=== PATIENT | male | born 1955 | race Caucasian/White ===

== ENCOUNTER → 2017-06-21 10:41 | Outpatient (REF) | payer MEDICARE, MEDICAID, SELFPAY ==
[2017-06-21 13:47] LABS: Basophils # 0.1 K/mm3 (0-0.2); Basophils % 0.9 % (0.1-2.0); Eosinophils # 0.2 K/mm3 (0.0-0.4); Eosinophils % 3.7 % (0.1-12.0); Hematocrit 54.4 % (42.0-52.0); Hemoglobin 17.6 g/dL (14.1-18.0); Lymphocytes # 1.4 K/mm3 (0.7-4.5); Lymphocytes % 21.8 K/mm3 (10-50); Mean Corpuscular HGB Conc 32.3 g/dL (31.8-35.4); Mean Corpuscular Hemoglobin 29.2 pg (27.0-31.2); Mean Corpuscular Volume 90.4 fl (80-94); Mean Platelet Volume 7.5 fl (7.4-10.4); Monocytes # 0.5 K/mm3 (0.1-1.0); Monocytes % 8.1 % (1.7-9.3); Neutrophils # 4.2 K/mm3 (1.8-7.8); Neutrophils % 65.4 % (37.0-80.0); Platelet Count 283 K/mm3 (142-424); Red Blood Count 6.02 M/mm3 (4.60-6.20); Red Cell Distribution Width 13.9 % (11.5-17.5); White Blood Count 6.4 K/mm3 (4.8-10.8)
[2017-06-21 14:04] LABS: Alanine Aminotransferase 33 U/L (12-78); Albumin Level 3.8 gm/dL (3.4-5.0); Alkaline Phosphatase 147 U/L (46-116); Anion Gap 16.4 mEq/L (5-15); Aspartate Amino Transferase 18 U/L (15-37); Bilirubin,Total 0.6 mg/dL (0.2-1.0); Blood Urea Nitrogen 16 mg/dL (7-18); Calcium 9.2 mg/dL (8.5-10.1); Carbon Dioxide 25 mmol/L (21.0-32.0); Chloride 99 mmol/L (98-107); Chol/HDL Ratio 3.3 (1-3.5); Cholesterol 146 mg/dL (140-200); Creatinine,Serum 0.91 mg/dL (0.70-1.30); Estimated Glomerular Filt Rate 85 ml/min (>60); GFR (African American) 103 ML/MIN (>60); Globulin 3.8 gm/dl (1.3-3.2); Glucose 81 mg/dL (74-106); HDL Cholesterol 44 mg/dL (27-67); LDL Cholesterol 83 mg/dL (0-130); Potassium 4.4 mmoL/L (3.5-5.1); Sodium 136 mmol/L (136-145); Total Protein,Serum 7.6 gm/dL (6.4-8.2); Triglycerides 94 mg/dL (30-200); VLDL Cholesterol 19 mg/dL (0-40)
== END ==
LOC: LAB.CARL 10:41
PROVIDERS: Visit Provider Physician Assistant
DX: R53.83 Other fatigue (principal); Z79.899 Other long term (current) drug therapy; I69.354 Hemiplegia and hemiparesis following cerebral infarction affecting left non-dominant side
CPT/HCPCS: 80053; 80061; 85025

== ENCOUNTER 2022-02-15 15:00 | Outpatient (RCR) | payer MEDICARE, MEDICAID, SELFPAY ==
--- NOTE | 2021-12-15 17:18 | HMH.PTOPEV ---
PT Outpatient Evaluation Rehab PT Outpatient Evaluation Start: 12/15/21 16:04 Freq: Status: Active Protocol: Document 12/15/21 16:04 MAXIMO (Rec: 12/15/21 17:18 [email or web address] [id number]) E-signed By Sukhjinder Ramos, PT Outpatient Therapy Subjective History Subjective History Pt.'s /caregiver was present at the time of the initial eval. this date(). Pt. is a 66 year old male who presents to [facility] Outpatient Physical Therapy Services in [place] for the initial evaluation this date( 12/15/21) w/ c's/o chronic and constant L-sided P!, weakness , numbness, and spasticity secondary to a CVA 8 years ago w/ current symptom complaint worsening in the last year. Pt . reports noticing a decline in transfers, standing, and ambulation within the last year. Pt. currently reports requiring assistance w/ transfers, states the only time he's been on his feet are for transferring to/from toilet. Pt. reports owning medical equipment that includes a lift chair, grab bars, W/C accessible shower, power W/C, chelsi-walker, and SPC. Pt. also reports having an AFO for the LLE ankle/ft., but dons it w/ prolonged ambulation at this time. Pt. also reports having an increase in P! w/ activity that limits function. Pt. RTMD in 3 months. PMH includes COPD, LUE shldr. subluxation, history of auditory/speech deficits, S/P percutaneous nephrolithotomy, and history of a CVA. Chief Complaint Pain,Stiff,Swelling,Gives out/ Unstable,Paresthesia,Weakness, Decreased Coordination Symptom Type Ache,Throb,Dull,Numbness, Shooting Symptom
== END 2022-03-01 09:31 | disposition home or self-care (01) ==
LOC: PT.CARL 15:00
PROVIDERS: PCP Family Medicine; Visit Provider Family Medicine
DX: I63.9 Cerebral infarction, unspecified (principal)
CPT/HCPCS: 97110; 97163; 97164; 97530

== ENCOUNTER 2024-02-28 09:17 | Outpatient (CLI) | payer MEDICARE, MEDICAID, SELFPAY ==
--- NOTE | 2024-02-28 09:19 | CA_ITS ---
FINAL REPORT TECHNIQUE: Color Doppler, duplex Doppler and compression sonography of the left lower extremity deep venous systems was performed. CLINICAL HISTORY: SWELLING,PAIN LLE,REDNESS,PT HAD A CVA 10 YEARS AGO WITH LEFT SIDE DEFICIT,HTN,PT ON ELIQUIS COMPARISON: None FINDINGS: There is no evidence of deep venous thrombosis in the left lower extremity from the level of the groin to the calf. The veins are patent and compressible. IMPRESSION: No evidence of deep venous thrombosis left lower extremity. Reviewed, Interpreted and Dictated by Wilber Mendoza III, MD Transcribed by Zaynab Enriquez Authenticated and [facility]
== END 2024-02-28 23:59 | disposition home or self-care (01) ==
LOC: RT 09:18
PROVIDERS: PCP Family Medicine; Visit Provider Family Medicine
DX: M79.89 Other specified soft tissue disorders (principal)
CPT/HCPCS: 93971

== ENCOUNTER 2024-07-02 11:12 | Emergency (ER) | payer MEDICARE, MEDICAID, SELFPAY ==
[2024-07-02 11:21] VITALS: BP 150/80; PULSE 78; RESP 18; TEMP 36.8; O2SAT 95; BMI 28.0
--- NOTE | 2024-07-02 11:32 | XR_ITS ---
FINAL REPORT CLINICAL HISTORY: COPD, worsening cough COMPARISON: None FINDINGS: There is lordotic positioning. The lungs are underinflated. The heart size is normal. The mediastinum is normal. There is mild airspace opacity in the right perihilar region, probably due to acute pneumonia. There are no pleural effusions. There is no pneumothorax. There is no osseous abnormality. IMPRESSION: Probable acute pneumonia right perihilar region. Follow-up PA and lateral chest recommended. Reviewed, Interpreted and Dictated by Arturo Buckley MD Transcribed by Joan Caballero Authenticated and [facility]
--- NOTE | 2024-07-02 11:32 | CA_ITS ---
FINAL REPORT TECHNIQUE: Ultrasound images of the deep venous system were obtained from the left groin to the calf veins. CLINICAL HISTORY: EDEMA LLE,PT HAS HAD PRIOR CVA WITH DEFICITS,PT ON XARELTO FINDINGS: The deep venous system is normally compressible. Normal flow is identified. IMPRESSION: No evidence of left lower extremity DVT. Reviewed, Interpreted and Dictated by Arturo Buckley MD Transcribed by Nichol Vernon Authenticated and [facility]
--- NOTE | 2024-07-02 11:34 | HMH.EDGENADL ---
Discharge Plan Disposition Patient Disposition: Home, Self-Care Condition: Good Prescriptions Prescriptions: New levofloxacin 750 mg tablet 750 mg PO DAILY 7 Days Qty: 7 0RF prednisone 20 mg tablet 40 mg PO DAILY 4 Days Qty: 8 0RF Rx Instructions: Start tomorrow 07/03/2024 No Action citalopram 40 mg tablet See Rx Instructions .ROUTE .COMPLEX Qty: 30 4RF Dose Instruction: TAKE 1 TABLET BY MOUTH EVERY DAY ORALLY ONCE A DAY 30 DAYS Rx Instructions: TAKE 1 TABLET BY MOUTH EVERY DAY ORALLY ONCE A DAY 30 DAYS gabapentin 800 mg tablet 800 mg PO TID Qty: 90 3RF albuterol sulfate 90 mcg/actuation HFA aerosol inhaler 1 inh inhalation QID 30 Days Qty: 8.5 2RF roflumilast 500 mcg tablet See Rx Instructions .ROUTE .COMPLEX Qty: 90 0RF Dose Instruction: TAKE 1 TABLET 1 TIME EACH DAY Rx Instructions: TAKE 1 TABLET 1 TIME EACH DAY amitriptyline 75 mg tablet See Rx Instructions .ROUTE .COMPLEX Qty: 90 0RF Dose Instruction: TAKE 1 TABLET 1 TIME EACH DAY Rx Instructions: TAKE 1 TABLET 1 TIME EACH DAY Xarelto 20 mg tablet See Rx Instructions .ROUTE .COMPLEX Qty: 90 0RF Dose Instruction: TAKE 1 TABLET 1 TIME EACH DAY Rx Instructions: TAKE 1 TABLET 1 TIME EACH DAY propranolol 10 mg tablet See Rx Instructions .ROUTE .COMPLEX Qty: 90 0RF Dose Instruction: TAKE 1 TABLET 1 TIME EACH DAY Rx Instructions: TAKE 1 TABLET 1 TIME EACH DAY baclofen 20 mg tablet See Rx Instructions .ROUTE .COMPLEX Qty: 270 0RF Dose Instruction: TAKE 1 TABLET 3 TIMES EACH DAY Rx Instructions: TAKE 1 TABLET 3 TIMES EACH DAY omeprazole 40 mg capsule,delayed release(DR/EC) See Rx Instructions .ROUTE .COMPLEX Qty: 60 0RF Dose Instruction: TAKE 1 CAPSULE 2 TIMES EACH DAY FOR REFLUX Rx Instructions: TAKE 1 CAPSULE 2 TIMES EACH DAY FOR REFLUX oxycodone-acetaminophen 10-325 mg tablet 1 tab PO DAILY Qty: 30 0RF Referrals Follow up/Referrals: Elias Washington MD [Primary Care Provider] - See instructions Activity Restrictions/Add. Instructions Additional Instructions/Restrictions: You were evaluated in the emergency department today. At this time, workup is concerning for pneumonia. Please cotton picker the prescriptions at the pharmacy and take the full course as prescribed. Be sure to drink plenty of fluids at home. Follow-up closely with primary care. Return to the emergency department for new or worsening symptoms. Clinical Impressions Clinical Impression: Pneumonia, Hallucinations Instructions Patient Instructions: Pneumonia--Adult, DI for Altered Mental Status Print Language Print Language: Ukrainian Discharge ED Provider: Amanda Johns General Adult HPI General Chief complaint: Altered Mental Status Stated complaint: Poss UTI-hallucinations, shaking Time Seen by Provider: 07/02/24 11:22 History of Present Illness HPI narrative: This patient is a 68-year-old male with a history of prior CVA with residual left-sided deficits, COPD, GERD, and depression presenting to the emergency department for evaluation concern for confusion and hallucinations. According to family, they think he may have a UTI based on symptoms and issues that he had with this in the past. They also note that he is coughing up a little bit more sputum than normal, but no recent fevers, complaints of sore throat or shortness of breath. They also note that he has had some worsening swelling and tenderness of his left leg. 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 It is always sensitive, but seems be more sensitive now with him being irritable with it touching the floor. Aside from the intermittent hallucinations and confusion, no new neurologic symptoms noted. Related Data Previous Rx's ?Medication ?Instructions ?Recorded citalopram 40 mg tablet See Rx Instructions .Route 12/26/23 .COMPLEX #30 tabs gabapentin 800 mg tablet 800 mg PO TID #90 tabs 12/26/23 albuterol sulfate 90 mcg/actuation 1 inh inhalation QID 30 days #8.5 05/16/24 aerosol inhaler grams amitriptyline 75 mg tablet See Rx Instructions .Route 06/08/24 .COMPLEX #90 tabs baclofen 20 mg tablet See Rx Instructions .Route 06/08/24 .COMPLEX #270 tabs omeprazole 40 mg capsule,delayed See Rx Instructions .Route 06/08/24 release .COMPLEX #60 caps oxycodone-acetaminophen 10 mg-325 1 tab PO DAILY #30 tabs 06/08/24 mg tablet propranolol 10 mg tablet See Rx Instructions .Route 06/08/24 .COMPLEX #90 tabs rivaroxaban 20 mg tablet (Xarelto) See Rx Instructions .Route 06/08/24 .COMPLEX #90 tabs roflumilast 500 mcg tablet See Rx Instructions .Route 06/08/24 .COMPLEX #90 tabs levofloxacin 750 mg tablet 750 mg PO DAILY 7 days #7 tabs 07/02/24 prednisone 20 mg tablet 40 mg (2 x 20 mg) PO DAILY 4 days 07/02/24 #8 tabs Allergies Allergy/AdvReac Type Severity Reaction Status Date / Time Penicillins Allergy Hives Verified 07/02/24 14:11 [facility] Disclaimer: The information contained in this section may have been updated after the patient was seen, as this information can be updated by other users. Medical History Depression GERD (gastroesophageal reflux disease) CVA (cerebral vascular accident) Surgical History Kidney stones Family History Mother Coronary artery disease Heart attack Social History Smoking Status: Never smoker alcohol intake: current alcohol intake frequency: holidays/special occasions only substance use type: marijuana current occupational status: disabled Travel in the last 8 weeks: None household members: spouse housing: house Have you lived/traveled outside [place] in past 30 days?: No Contact w/someone who lives/traveled outside US past 30 days?: No Exposure to someone with infectious disease in past 14 days?: No Do you have a fever (greater than 100.4 F or 38 C)?: No Have you tested positive for COVID-19: No Exposed to someone with COVID-19 in past 14 days?: No Do you have a sore throat?: No Do you have a cough?: No Do you have any weakness?: No Do you have any diarrhea?: No Are you experiencing any unusual bleeding?: No Do you have any muscle aches/pain?: No Do you have any abdominal pain?: No Are you experiencing loss of taste or smell?: No Other Medical History Have you received the Pneumonia Vaccine: Yes ROS Obtained: Yes All systems reviewed & no additional complaints except as documented Physical Exam General General appearance: alert and in no apparent distress Head Head exam: atraumatic and normocephalic Eye Eye exam: Present normal appearance, PERRL and EOMI ENT ENT exam: Present normal exam, normal oropharynx, mucous membranes moist and normal external ear exam Neck Neck exam: Present normal inspection, full ROM and trachea midline; Absent tenderness Chest Chest inspection: Present normal inspection and symmetric chest wall rise; Absent tenderness Respiratory Respiratory exam: Present other (Bibasilar rhonchi); Absent respiratory distress, wheezes, stridor or accessory muscle use Cardiovascular Cardiovascular exam: Present regular rate and normal rhythm Abdominal Exam Abdominal exam: Present soft; Absent distention, tenderness or guarding Extremities Exam Extremities exam: Present tenderness (Tenderness to palpation of the left lower leg), normal capillary refill and edema (Dependent edema to the left lower extremity with some chronic skin changes, no significant erythema, warmth, or streaking) Back Exam Back exam: Present normal inspection and full ROM; Absent tenderness Neurological Exam Neurological exam: Present alert, oriented X3, CN II-XII intact and other (At his neurologic baseline with residual left-sided deficits from stroke) Psychiatric Psychiatric exam: Present normal affect and normal mood Skin Skin exam: Present warm and dry Medical Decision Making Medical Records Medical records reviewed: Yes I reviewed the patient's medical records. Screening: Per USPSTF and CDC recommendations, given the prevalence of disease in our region, it is our hospital?s policy to screen for HIV and viral Hepatitis for all patients aged 18 and over and those with ongoing risk factors. Travis Inquiry Pt receiving controlled substance: No Vital Signs: 07/02/24 11:21 07/02/24 12:48 07/02/24 13:00 Temperature 98.2 F Temperature Source Oral Pulse Rate 70 69 Pulse Rate [Radial] 78 Respiratory Rate 18 Blood Pressure 129/76 130/79 Blood Pressure [Right Arm] 150/80 H Blood Pressure Mean [Right Arm] 103 Blood Pressure Source [Right Arm] Automatic Cuff Blood Pressure Position [Right Arm] Sitting 02 Sat by Pulse Oximetry 95 95 98 Oxygen Delivery Method Room Air 07/02/24 14:19 Temperature 97.9 F Temperature Source Pulse Rate 61 Pulse Rate [Radial] Respiratory Rate 13 Blood Pressure 153/85 H Blood Pressure [Right Arm] Blood Pressure Mean [Right Arm] Blood Pressure Source [Right Arm] Blood Pressure Position [Right Arm] 02 Sat by Pulse Oximetry Oxygen Delivery Method Lab Data Lab results reviewed: Yes I reviewed the patient's lab results. Lab Results 07/02/24 11:32: VBG pH 7.47 H, VBG pCO2 32.4 L, VBG pO2 111.0 H, VBG HCO3 23.2, VBG Total CO2 24.2, VBG O2 Saturation 98.2 H, VBG Base Excess -0.5, VBG Lactic Acid 2.8 H 07/02/24 11:45: WBC 6.7, RBC 5.33, Hgb 14.4, Hct 45.0, MCV 84.4, MCH 27.0, MCHC 32.0, RDW 15.9, Plt Count 319, MPV 8.9, Neut % (Auto) 63.4, Lymph % (Auto) 22.6, [place] % (Auto) 7.3, Eos % (Auto) 5.4, Baso % (Auto) 1.2, Neut # (Auto) 4.3, Lymph # (Auto) 1.5, [place] # (Auto) 0.5, Eos # (Auto) 0.4, Baso # (Auto) 0.1, ESR 8, SARS-CoV-2 (PCR) Not detected, HCV Ab ANDREA w/Rflx PCR Qn Negative, HIV Ag/Ab Combo Qual Negative, Influenza A Untype (PCR) Not detected, Influenza Type B (PCR) Not detected 07/02/24 13:20: Sodium 141, Potassium 4.4, Chloride 106, Carbon Dioxide 28, Anion Gap 11.4, BUN 13, Creatinine 1.30 H, Estimated Creat Clear 68, Estimated GFR 55 L, Est GFR ( Amer) 67, Glucose 84, Calcium 8.6, Total Bilirubin 0.3, AST 27, ALT 24, Alkaline Phosphatase 88, C-Reactive Protein 9.5 H, NT-Pro-B Natriuret Pep 103, Total Protein 7.1, Albumin 3.9, Globulin 3.2, Albumin/Globulin Ratio 1.2, TSH 1.26, Thyroxine (T4) 7.8 07/02/24 13:30: Urine Color Yellow, Urine Appearance Clear, Urine pH 7.0, Ur Specific [place] 1.015, Urine Protein Negative, Urine Glucose (UA) Negative, Urine Ketones Negative, Urine Blood Trace-i, Urine Nitrate Negative, Urine Bilirubin Negative, Urine Urobilinogen 0.2, Ur Leukocyte Esterase Negative, Urine RBC 5-10, Urine WBC 3-5, Ur Squamous Epith Cells None, Urine Bacteria None 07/02/24 11:45 07/02/24 13:20 Orders (Tests/Meds): ED MEDICATIONS Discontinued Medications Generic Name Dose Route Start Last Admin Trade Name Raheem PRN Reason Stop Dose Admin Levofloxacin 750 mg 07/02/24 13:41 07/02/24 13:47 Levofloxacin 750 Mg Tablet PO 07/02/24 13:42 750 mg ONCE ONE Administration Prednisone 40 mg 07/02/24 13:41 07/02/24 13:47 Prednisone 20mg Tab PO 07/02/24 13:42 40 mg ONCE ONE Administration ORDERS Category Date Time Status CXR --portable [XR chest portable] Stat Exams 07/02/24 11:32 Completed BNP [NT Pro Brain Natriuretic Pep.] Stat Lab 07/02/24 13:20 Completed CRP [C-Reactive Protein] Stat Lab 07/02/24 13:20 Completed Complete Blood Count Auto Diff Stat Lab 07/02/24 11:45 Completed Comprehensive Metabolic Panel Stat Lab 07/02/24 13:20 Completed ESR [Erythrocyte Sedimentation Rate] Stat Lab 07/02/24 11:45 Completed HIV Combo Stat Lab 07/02/24 11:45 Completed Hepatitis C Ab Qual. W/ RFX Stat Lab 07/02/24 11:45 Completed Rapid PCR Covid and Flu A/B Stat Lab 07/02/24 11:45 Completed T4 (Thyroxine) Stat Lab 07/02/24 13:20 Completed TSH [Thyroid Stimulating Hormone] Stat Lab 07/02/24 13:20 Completed UA [Urinalysis and Microscopic] Stat Lab 07/02/24 13:30 Completed Urine Culture Stat Micro 07/02/24 11:33 Received VBG [Venous Blood Gas] Stat RT 07/02/24 11:32 Completed CA venous doppler LE LT Stat Y 07/02/24 11:32 Completed ECG Data Tracing #1: I reviewed this ECG and interpreted as documented below: Normal sinus rhythm with a ventricular rate of 70 bpm. Indeterminate axis. Right bundle branch block. No acute ST changes concerning for STEMI ECG initial impression date: 07/02/24 ECG initial impression time: 12:16 Medical Decision Narrative: In summary, this patient is a 68-year-old male presenting to the Emergency Department for evaluation of possible UTI with confusion, hallucinations. He also has had increased sputum production, left leg pain and swelling, but these were not family's primary concerns. Differential diagnoses considered include but are not limited to urinary tract infection, metabolic encephalopathy, DVT, cellulitis, pneumonia, COPD exacerbation, viral syndrome. Ruling out the most morbid conditions drove assessment. It should be noted patient's history includes prior CVA with residual left-sided deficits, GERD, COPD which may or may not be at goal therapy. This complicates all aspects of care by increasing patient's risk for morbidity. I reviewed patient's past medical records and noted prior PCP evaluations for maintenance of health as well as for chronic pain of the left lower extremity. On exam, the patient is sitting upright in no acute distress. He is alert, oriented, at his neurologic baseline. He has chronic left leg swelling with tenderness this slightly worse than normal. He has bilateral rhonchi noted but no increased work of breathing. Vitals are reassuring on cardiac telemetry. Abdominal exam is benign. Workup included CBC, CMP, TSH, T4, ESR, CRP, urinalysis, urine culture, chest x-ray, viral swab, DVT ultrasound of the left lower extremity, and EKG. I independently interpreted x-ray and ultrasound prior to the radiologist read and noted right sided pneumonia, no DVT. Please see their read for final interpretation. Labs were obtained that demonstrated CBC with no significant leukocytosis, VBG demonstrates mild respiratory alkalosis and mildly elevated lactic acid. Creatinine is mildly elevated at 1.3 without prior recent for comparison. CRP is mildly elevated.. Urinalysis is not concerning for infection. On reassessment, patient is resting comfortably no acute distress with no increased work of breathing reassuring vital signs on cardiac telemetry. I feel that he is appropriate for discharge home with prescriptions for antibiotics and steroids to treat community-acquired pneumonia/COPD exacerbation. He was given prescriptions for Levaquin and prednisone. Strict return precautions were given as well as instructions for close follow-up with primary care. Critical Care Critical Care Time Critical Care Time: No
--- OUTSIDE RECORDS SUMMARY | 2024-07-02 11:52 | XMS_ITS | Data Portability ---
Author Organization [place] [facility] Address [address] [place] [address] Assessment Encounter Date Assessment Date Assessment LastModified by Organization Details LastModified Time 11/17/2017 11/17/2017 Stent has been removed. We discussed kidney stone prevention. [email or web address] Not available 11/27/2017 22:13:44 Plan of Treatment Reminders Order Date Submit Date Provider Last Modified By Organization Details Last Modified Time Details Appointments None recorde d. Lab urinaly sis, dipstic k, auto 018 11/18/19 18 [facility] With [facility], [address] [place] [address] Dr [address], [place], [address], 8 12:06:37 culture , urine 018 11/18/19 18 [facility], [address] [place] [address], [address], 8 15:54:00 Referral None recorde d. Procedures None recorde d. Surgeries None recorde d. Imaging None recorde d. Medication Orders None recorde d. Patient TargetsNo targets recorded. Patient Instructions Encounter Date Encounter Id Patient Instructions Last Modified By Organization Details Last Modified Time 11/17/2017 [id number] healthy together [email or web address] Not availa ble 11/18/2017 12:06:37 learning about high blood pressure [email or web address] Not available 11/18/2017 12:06:37 Urinary Tract Infections (UTI) in Men: Care Instructions [email or web address] Not available 11/18/2017 12:06:37 kidney stone: care instructions [email or web address] Not available 11/27/2017 22:13:44 learning about diet for kidney stone prevention [email or web address] Not available 11/27/2017 22:13:45 Reason for Referral None Reported. Results Created Date Observation Date Name Description Value Unit Range Abnormal Flag Note LastModifiedBy Organization Detail LastModifiedTime 11/18/19 18 11/17/2017 urina lysis , dipst ick, auto Unknown Analyte Yellow Not Available [facility] Extended Services With [address], [place], [address], 11/17/2017 16:01:12 11/18/19 18 11/17/2017 urina lysis , dipst ick, auto Unknown Analyte Clear Not Available [facility] Extended Services With [address] [place], [address], 11/17/2017 16:01:12 11/18/19 18 11/17/2017 urina lysis , dipst ick, auto Unknown Analyte 1.010 Not Available [facility] Extended Services With [address] [place], [place], [address], 11/17/2017 16:01:12 11/18/19 18 11/17/2017 urina lysis , dipst ick, auto Unknown Analyte 1.003 - 1.035 Not Available [facility] Extended Services With [address] [place], [address], 11/17/2017 16:01:12 11/18/19 18 11/17/2017 urina lysis , dipst ick, auto Unknown Analyte 6.5 Not Available [facility] Extended Services With [address] [place], [address], 11/17/2017 16:01:12 11/18/19 18 11/17/2017 urina lysis , dipst ick, auto Unknown Analyte 5.0 - 8.0 Not Available [facility] Extended Services With [address] [place], [place], [address], 11/17/2017 16:01:12 11/18/19 18 11/17/2017 urina lysis , dipst ick, auto Unknown Analyte 75 Sheri/ul (+) Not Available [facility] Extended Services With [address] [place], [address], 11/17/2017 16:01:12 11/18/19 18 11/17/2017 urina lysis , dipst ick, auto Unknown Analyte Negati ve Not Available [facility] Extended Services With [address] [place], [address], 11/17/2017 16:01:12 11/18/19 18 11/17/2017 urina lysis , dipst ick, auto Unknown Analyte Negati ve Not Available [facility] Extended Services With [address] [place], [address], 11/17/2017 16:01:12 11/18/19 18 11/17/2017 urina lysis , dipst ick, auto Unknown Analyte Negati ve Not Available [facility] Extended Services With [address] [place], [address], 11/17/2017 16:01:12 11/18/19 18 11/17/2017 urina lysis , dipst ick, auto Unknown Analyte Trace Not Available [facility] Extended Services With [address] [place], [address], 11/17/2017 16:01:12 11/18/19 18 11/17/2017 urina lysis , dipst ick, auto Unknown Analyte Negati ve - Trace Not Available [facility] Extended Services With [address] [place], [address], 11/17/2017 16:01:12 11/18/19 18 11/17/2017 urina lysis , dipst ick, auto Unknown Analyte Normal Not Available [facility] Extended Services With [address] [place], [place], [address], 11/17/2017 16:01:12 11/18/19 18 11/17/2017 urina lysis , dipst ick, auto Unknown Analyte Normal Not Available [facility] Extended Services With [address] [place], [address], 11/17/2017 16:01:12 11/18/19 18 11/17/2017 urina lysis , dipst ick, auto Unknown Analyte Negati ve Not Available [facility] Extended Services With [address] [place], [address], 11/17/2017 16:01:12 11/18/19 18 11/17/2017 urina lysis , dipst ick, auto Unknown Analyte Negati ve Not Available [facility] Extended Services With [address] [place], [address], 11/17/2017 16:01:12 11/18/19 18 11/17/2017 urina lysis , dipst ick, auto Unknown Analyte Normal Not Available [facility] Extended Services With [address] [place], [address], 11/17/2017 16:01:12 11/18/19 18 11/17/2017 urina lysis , dipst ick, auto Unknown Analyte Normal - 1mg/dl Not Available [facility] Extended Services With [address] [place], [address], 11/17/2017 16:01:12 11/18/19 18 11/17/2017 urina lysis , dipst ick, auto Unknown Analyte Negati ve Not Available [facility] Extended Services With [address] [place], [address], 11/17/2017 16:01:12 11/18/19 18 11/17/2017 urina lysis , dipst ick, auto Unknown Analyte Negati ve Not Available [facility] Extended Services With [address] [place], [address], 11/17/2017 16:01:12 11/18/19 18 11/17/2017 urina lysis , dipst ick, auto Unknown Analyte 250 Gal/ul Not Available [facility] Extended Services With [address] [place], [address], 11/17/2017 16:01:12 11/18/19 18 11/17/2017 urina lysis , dipst ick, auto Unknown Analyte Negati ve Not Available [facility] Extended Services With [address] [place], [address], 11/17/2017 16:01:12 11/18/19 18 11/17/2017 urina lysis , dipst ick, auto Unknown Analyte Clean Catch Not Available [facility] Extended Services With [address] [place], [address], 11/17/2017 16:01:12 11/18/19 18 11/17/2017 urina lysis , dipst ick, auto Unknown Analyte Automa mary ann Not Available [facility] Extended Services With [address] [place], [address], 11/17/2017 16:01:12 11/18/19 18 11/17/2017 cultu re, urine results Sourc e: CCJAIRON Colle cted: 11/17 16:03 Site: Recei kranthi : 11/17 20:32 URINE SCREE N(CUL TURE) FINAL 11/22 11:45 11/22 COLON Y COUNT : < 20,00 0 CFU/M L Three or more isola kaiden; mixed skin lloyd . Not Available [facility] [address] [place], [address], 11/22/2017 11:45:33 11/10/19 18 11/06/2017 CT, abdom en + pelvi s, w/o contr ast No observ ation record ed. [address] (Radiology) [address] [place], [address], 11/09/2017 15:49:19 Result Notes None recorded. Problems Name Problem SNOMED Code Status Onset Date Resolution Date Notes Provider Name and Address Organization Details Recorded Time Renal pain 346889329 Active 018 Gretchen Baer [facility] 11/17/2017 15:58:34 Problem Notes None recorded. Procedures Surgical History Date Name Laterality Status Provider Name and Address Organization Details Recorded Time 11/10/2017 Kidney Stones completed [facility] 11/17/2017 15:59:12 Imaging Results Imaging Date Name Status LastModified by Organiz ation Details LastModified Time 11/06/2017 CT, abdomen + pelvis, w/o contrast completed [address] (Radiology) [address] [place] [address] [place], [address], 11/09/2017 15:49:19 Procedure Notes None recorded. Medical Equipment None Reported. Allergies Allergen ID Allergen Name Allergen Category Reaction Reaction Severity Criticality Documentation Date Start Date Code Code System Note Provider Name and Address Organization Details Recorded Time 724205 Product containin g penicilli n (product) medicatio n Not available Not available Not available 11/17/2017 51572 8001 SNOMED Taylorherminioyajaira Keyur [facility] 8 15:51:56 Medications Name Sig Start Date Stop Date Status Note LastModified by Organization Details LastModified Time propranolol 10 mg tablet Take 2 tablets 3 times a day by oral route. active Not Available Not Available No t Available DuoNeb 0.5 mg-3 mg(2.5 mg base)/3 mL solution for nebulization Inhale 3 mL 4 times a day by nebulizatio n route. active Not Available Not Available No t Available Celexa 20 mg tablet Take 1 tablet every day by oral route. active Not Available Not Available No t Available pantoprazole 40 mg tablet,delay ed release Take 1 tablet every day by oral route. active Not Available Not Available No t Available Elavil 75 mg tablet Take 1 tablet every day by oral route. active Not Available Not Available No t Available Mucinex 600 mg tablet, extended release Take 1 tablet every 12 hours by oral route. active Not Available Not Available Not Available triamcinolon e acetonide active Not Available Not Available Not Available atorvastatin active Not Available Not Available Not Available oxycodone active Not Available Not Beata ilable Not Available nystatin active Not Available Not Avai lable Not Available Pepto-Bismol active Not Available Not Available Not Available baclofen active Not Available Not Avai lable Not Available Aspir-81 active Not Available Not Avai lable Not Available albuterol sulfate active Not Available Not Available Not Available promethazine active Not Available Not Available Not Available gabapentin active Not Available Not Av ailable Not Available Protonix active Not Available Not Avai lable Not Available Symbicort active Not Available Not Beata ilable Not Available Probiotic active Not Available Not Beata ilable Not Available Daliresp active Not Available Not Avai lable Not Available Xarelto 20 mg tablet Take 1 tablet every day by oral route. active Not Available Not Available No t Available terbinafine active Not Available Not A vailable Not Available Flonase Allergy Relief active Not Available Not Available Not Available Melatin 3 mg tablet Take by oral route. active Not Available Not Available Not Available Spiriva Respimat 1.25 mcg/actuatio n solution for inhalation Inhale 2 puffs every day by inhalation route. active Not Available Not Available No t Available econazole nitrate (bulk) active Not Available Not Available Not Available Vitals Date Recorded Body height Body mass index (BMI) Body weight Systolic blood pressure Diastolic blood pressure Provider Name and Address Organization Details Last Updated DateTime 11/17/2017 177.8 cm 30.7 kg/m2 32190.77 g 118 mm[Hg] 60 mm[Hg] Gretchen Baer [facility] 8 15:51:18 Social History Question Answer Notes LastModified by Organizat ion Details LastModified Time Tobacco Smoking Status Former Smoker Taylorilsa Keyur [facility] 11/17/2017 15:58:50 What Is Your Level Of Alcohol Consumption? None Information not available 11/17/2017 Marital Status Informatio n not available 11/17/2017 What Was The Date Of Your Most Recent Tobacco Screening? 11/17/2017 Information n ot available 05/08/2019 Sex: Unknown Functional Status None recorded. Mental Status None recorded. Family History Relationship Description Onset Age of this Age Resolved Age Notes LastModified by Organization Details LastModified Time Father No current problems or disability Not available 11/17 15:58:42 Mother No current problems or disability Not available 11/17 15:58:43 Medical History Condition Response Kidney Stones Y Past Encounters Encounter ID Performer Location Encounter Start Date Encounter Closed Date Diagnosis/Indication Diagnosis SNOMED-CT Code Diagnosis ICD10 Code Diagnosis Note [id number] [place] [address] 06/21/2016 19:03:09 06/21/2016 19:03:09 [id number] WILLIAM KITCHEN MD [facility] EXTENDED SERVICES [address] [place] [address],[place] [address] 11/17/2017 14:39:16 11/28/2017 08:26:07 Urinary tract infectious disease 50162566 N39.0 Kidney stone 66058103 N2 0.0 Health Concerns Section Related Observation LastModified by Organization Detai ls LastModified Time None Recorded Concern Status LastModified by Organization Details LastModified Time None Recorded Advance Directives Directive None Recorded Payers Encounter Date Sequence Insurance Name Policy Number Policy [place] Covered Member ID [place] Member ID Guarantor Name 11/17/2017 1 [employer] (MEDICARE REPLACEMENT/ ADVANTAGE - PPO) Valentín Jimenez [id number] Valentín Jimenez 11/17/2017 2 MEDICAID-[facility] CHOICES - FFS/TRADITIO NAL Valentín Jimenez [id number] Valentín Jimenez Notes Date Note Type Note Provider Name and Address Organization Details Recorded Time 11/17/2017 text/html 62-year-old male in the office for initial office evaluation of urolithiasis. He was admitted to [facility] with right renal colic secondary to ureteral stone. He underwent ureteroscopic stone extraction and stent placement. He is feeling much better now. No current flank pain, hematuria. WILLIAM KITCHEN MD [address] [place] [address], [address], [facility] 11/27/2017 22:14:24
[2024-07-02 11:53] LABS: Coronavirus 19, PCR Not Detected (NotDetected); Influenza A, PCR Not Detected (NotDetected); Influenza B, PCR Not Detected (NotDetected)
[2024-07-02 11:56] LABS: VBG Base Excess -0.5 mmol/L (-2.4-2.3); VBG HCO3 23.2 mmol/L (23-30); VBG Oxygen Saturation 98.2 % (50-70); VBG PCO2 32.4 mmol/L (35-51); VBG PH 7.47 mmol/L (7.31-7.41); VBG Total CO2 24.2 mmol/L (23-27)
[2024-07-02 11:58] LABS: Lactate Venous 2.8 mmol/L (0.4-2.0)
[2024-07-02 12:03] LABS: Basophils # 0.1 K/mm3 (0-0.2); Basophils % 1.2 % (0.1-2.0); Eosinophils # 0.4 K/mm3 (0.0-0.4); Eosinophils % 5.4 % (0.1-12.0); Hemoglobin 14.4 g/dL (14.1-18.0); Lymphocytes # 1.5 K/mm3 (0.7-4.5); Lymphocytes % 22.6 % (10-50); Mean Corpuscular Volume 84.4 fl (80-94); Mean Platelet Volume 8.9 fl (7.4-10.4); Monocytes # 0.5 K/mm3 (0.1-1.0); Monocytes % 7.3 % (1.7-9.3); Neutrophils # 4.3 K/mm3 (1.8-7.8); Neutrophils % 63.4 % (37.0-80.0); Nucleated Red Blood Cells # 0 10^3/uL; Nucleated Red Blood Cells % 0 %; Platelet Count 319 K/mm3 (142-424); Red Blood Count 5.33 M/mm3 (4.60-6.20); Red Cell Distribution Width 15.9 % (11.5-17.5); Red Cell Distribution Width-SD 48.8 fL; White Blood Count 6.7 K/mm3 (4.8-10.8)
--- NOTE | 2024-07-02 12:04 | PC.NURSE ---
doppler at bedside
--- NOTE | 2024-07-02 12:08 | PC.NURSE ---
XR AT BEDSIDE
--- NOTE | 2024-07-02 12:14 | ECG_ITS ---
APPROVED REPORT Exam: Resting ECG HR:70 bpm ECG Measurements Heart Rate 70 AXES CO 158 P 62 QRSd 121 QRS 37 QT 408 T 45 QTc 428 Conclusion SINUS RHYTHM INDETERMINATE AXIS RIGHT BUNDLE BRANCH BLOCK [120+ ms QRS DURATION, UPRIGHT V1, 40+ ms S IN I/aVL/V4/V5/V6] No STEMI Electronically signed by : YA MARCANO, 07/03/2024 00:22:24
[2024-07-02 12:48] VITALS: BP 129/76; PULSE 70; O2SAT 95
[2024-07-02 12:49] LABS: Erythrocyte Sedimentation Rate 8 mm/hr (0-20)
[2024-07-02 13:00] VITALS: BP 130/79; PULSE 69; O2SAT 98
[2024-07-02 13:00] LABS: HIV Combo NEGATIVE (Negative)
[2024-07-02 13:09] LABS: Hepatitis C Ab Qual. W/ RFX NEGATIVE (Negative)
[2024-07-02 13:36] LABS: Albumin Level 3.9 g/dl (3.5-5.0); Chloride 106 mmol/L (98-107); Potassium 4.4 mmoL/L (3.5-5.1); Sodium 141 mmol/L (136-145)
[2024-07-02 13:37] LABS: Microscopic, Urine URINE MICROSCOPIC (MICROSCOPIC)
[2024-07-02 13:39] LABS: Alanine Aminotransferase 24 U/L (12-78); Albumin/Globulin Ratio 1.2 (1.1-1.8); Alkaline Phosphatase 88 U/L (38-126); Anion Gap 11.4 mEq/L (5-15); Aspartate Amino Transferase 27 U/L (17-59); Bilirubin,Total 0.3 mg/dl (0.2-1.3); Blood Urea Nitrogen 13 mg/dl (9-20); Calcium 8.6 mg/dl (8.4-10.2); Carbon Dioxide 28 mmol/L (22.0-30.0); Creatinine Clearance Estimated 68 mL/min (50-200); Estimated Glomerular Filt Rate 55 ml/min (>60); GFR (African American) 67 ML/MIN (>60); Globulin 3.2 g/dL (1.3-3.2); Glucose 84 mg/dl (74-100); Total Protein,Serum 7.1 g/dl (6.3-8.2)
[2024-07-02 13:44] LABS: C-Reactive Protein 9.5 mg/L (0-4)
[2024-07-02] MEDS: predniSONE 20MG TAB 40 MG PO (13:47)
[2024-07-02] MEDS: levoFLOXacin 750 MG TABLET PO (13:47)
[2024-07-02 13:57] LABS: Appearance,Urine CLEAR (Clear); Bilirubin,Urine Negative (Negative); Blood, Urine TRACE-I (Negative); Color,Urine YELLOW (Yellow); Glucose,Urine (UA) Negative (Negative); Ketones,Urine Negative (Negative); Leukocyte Esterase,Urine Negative (Negative); Nitrate,Urine Negative (Negative); Protein,Urine Negative (Negative); Specific Gravity, Urine 1.015 (1.005-1.030); Urobilinogen,Urine 0.2 EU/dl (0.2)
[2024-07-02 13:58] LABS: T4 (Thyroxine) 7.8 ug/dl (5.53-11.0)
[2024-07-02 14:12] LABS: Thyroid Stimulating Hormone 1.26 uIU/mL (0.465-4.68)
[2024-07-02 14:19] VITALS: BP 153/85; PULSE 61; RESP 13; TEMP 36.6; O2SAT 95
[2024-07-02 14:32] LABS: NT Pro Brain Natriuretic Pep. 103 pg/mL (0-125)
[2024-07-02 15:59] LABS: Reflex Lactic Add Lactic Reflex
== END 2024-07-02 14:20 | disposition home or self-care (01) ==
PROVIDERS: Emergency Provider Emergency Medicine; PCP Family Medicine
DX: J44.0 Chronic obstructive pulmonary disease with (acute) lower respiratory infection (principal); J18.9 Pneumonia, unspecified organism; R44.3 Hallucinations, unspecified; R41.82 Altered mental status, unspecified
CPT/HCPCS: 99285; 36415; 71045; 80053; 81001; 82803; 83880; 84436; 84443; 85025; 85651; 86140; 86803; 87086; 87389; 87636; 93005; 93971

== ENCOUNTER 2024-07-24 14:37 | Outpatient (CLI) | payer MEDICARE, MEDICAID, SELFPAY ==
--- NOTE | 2024-07-24 14:41 | XR_ITS ---
FINAL REPORT CLINICAL HISTORY: pneumonia f/u COMPARISON: 07/02/2024 FINDINGS: PA and lateral views of the chest were obtained. The cardiac and mediastinal silhouettes are stable. Low lung volumes are present. There has been interval improvement in the right perihilar opacity since the prior chest x-ray. There is no significant pleural effusion or pneumothorax. No acute osseous abnormality is identified. IMPRESSION: Interval improvement in the right perihilar opacity since the prior chest x-ray of 07/02/2024. Reviewed, Interpreted and Dictated by Amisha Ramsey MD Transcribed by Zaynab Enriquez Authenticated and . [facility]
== END 2024-07-24 23:59 | disposition home or self-care (01) ==
LOC: RAD 14:38
PROVIDERS: PCP Family Medicine; Visit Provider Family Medicine
DX: J18.9 Pneumonia, unspecified organism (principal)
CPT/HCPCS: 71046

== ENCOUNTER 2024-08-15 15:00 | Outpatient (RCR) | payer MEDICARE, MEDICAID, SELFPAY ==
--- NOTE | 2024-08-08 16:54 | HMH.PTOPEV ---
PT Outpatient Evaluation Rehab PT Outpatient Evaluation Start: 08/08/24 15:06 Freq: Status: Active Protocol: Document 08/08/24 15:06 PDESEROUX (Rec: 08/08/24 16:54 PDESEROUX [id number]) E-signed By Sukhjinder Ramos, PT Outpatient Therapy Subjective History Subjective History Pt. is a 69 year old male who presents to [facility] Services in [place] for the outpatient initial evaluation this date( 08/08/24) w/ c/o subacute on chronic and constant LLE foot P!, edema, and weakness of traumatic onset in February of last year(2023). Pt. reports falling on his foot while transferring that resulted in P!, edema, and increased hypersensitivity to dorsal aspect of LLE foot. Pt. reports having trouble going to sleep, but also waking up in the night secondary to c/o LLE foot P!. Pt. 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 Pt. reports residual effects has progressively been getting worse since his fall. Pt. reports intermittent ambulating w/ LLE AFO, however , he doesn't wear it at home. Pt. c/o rubbing of his shoe to the dorsal aspect of his foot, expresses concern of abrasion to region of foot. Pt . reports since the P! has been worsening it has been more difficulty for him to transfer to<>from commode and recliner, but also more difficult to ambulate w/ his cane. Pt. RTMD in 3 months. Current medications include Propranolol, Baclofen, Celexa, Percocet, Neurontin, Xarelto. PMH includes CVA, nephrolith, COPD, pneumonia, foot drop of the LLE foot, spasticity of LLE. New diagnosis of cancer in past 12 No months? Chief Complaint Pain,Spasms,Swelling,Catches/ Locks,Gives out/Unstable, Paresthesia,Weakness Symptom Type Sharp,Stabbing,Burning, Numbness,Shooting Symptoms Relieved By Rest/Positioning,Ice,Brace/ Support,OTC Meds,Prescription Meds Symptoms Aggravated By Standing,Bending/Stooping, Physical Activity,Twisting, Walking Prior Functional Limitations None Current Functional Limitations Housework,Dressing,Sleeping, Standing,Recreation Activity, Walking,Stairs,Balance Symptom Description Constant but Variable,Activity Dependent Level of pain today (0-10) 3 Pain scale - at its best (0-10) 2 Pain scale - at its worst (0-10) 6 Hip/Knee Eval Gait Observation General Gait Pattern Observation Antalgic Gait,Shuffling Step, Decrease Weight Bear (L), Decrease Stride Lngth (R) Assistive Device Assistive Devices Straight Cane Palpation Tenderness left Knee Palpation Finding Tenderness Knee Palpation Overall Comment grade 4 +TTP MMT Hip Flexion Strength Grade 2 Poor Hip Abduction Strength Grade 2 Poor Hip Adduction Strength Grade 2 Poor Hip Extension Strength Grade 2+ Poor+ Gluteus Anil Strength Grade 2+ Poor+ Hip External Rotation Strength Grade 2 Poor Hip Internal Rotation Strength Grade 2 Poor Knee Extension Strength Grade 2+ Poor+ Knee Flexion Strength Grade 2+ Poor+ Knee Extensors Muscle Tone Description Rigidity Knee Flexors Muscle Tone Description Rigidity Hip Extensors Muscle Tone Description Rigidity Hip Flexors Muscle Tone Description Rigidity Sensation LE Dermatome Level L2,L3,L4,L5,S1 Comment pt. vocalized decreased light touch sensation of LLE compared to RLE Ankle/Foot Eval Palpation Tenderness Ankle/Foot Palpation Findings Tenderness Ankle/Foot Palpation Overall Comment grade 4 +TTP extensor hallucis longus/brevis tendons, great toe ATF TTP negative PTF TTP negative CF TTP negative Deltoid ligament TTP negative ROM Ankle/Foot Dorsiflexion w/Knee Extended +43 Active Range Motion (degrees) Ankle/Foot Dorsiflexion w/Knee Extended +31 Passive Range (degrees) Ankle/Foot Plantar Flexion Active Range 45 of Motion (degrees) Ankle/Foot Plantar Flexion Passive Range 49 of Motion (degrees) Ankle/Foot Eversion Active Range of 0 Motion (degrees) Ankle/Foot Eversion Passive Range of 7 Motion (degrees) Ankle/Foot Inversion Active Range of 0 Motion (degrees) Ankle/Foot Inversion Passive Range of 9 Motion (degrees) Ankle/Foot ROM Limitations Soft Tissue Tightness,Muscle Weakness,Muscle Tone Accessory Movements Toe Accessory Movement that Elicit MTP Dorsal Woodward,MTP Plantar Symptoms Woodward,MTP Medial Woodward,MTP Lateral Woodward,PIP Dorsal Woodward ,PIP Plantar Woodward,PIP Medial Woodward,PIP Lateral Woodward,DIP Dorsal Woodward,DIP Volar Woodward, DIP Medial Woodward,DIP Lateral Woodward MMT left Ankle Dorsiflexion Strength Grade 1 Trace Ankle Plantarflexion Strength Grade 2 Poor Foot Eversion Strength Grade 0 Zero Foot Inversion Strength Grade 0 Zero Ankle Dorsiflexors Muscle Tone Rigidity Description Neuro tests decrease sensation to monofilament Yes Outpatient Therapy Assessment Impairments Problems/Impairmments Palpation Tenderness,Impaired Range of Motion,Impaired Strength,Impaired Endurance, Impaired Transfers,Impaired Gait Pattern,Impaired Walking, Impaired Standing,Impaired Dressing,Impaired Household Care,Impaired Recreational Activities,Impaired Balance, Increased Edema,Subjective C/O Pain,Impaired Self Care/Self Management Prognosis Rehab Potential Good Comment w/ HEP compliancy Clinical Impression Consistent with Diagnosis Yes Consistent with cerebral infarction, foot drop LLE Short Term Goals Number of Weeks 2 Decreased Palpation Tenderness Yes: grade 2 +TTP Decrease Subjective C/O Pain Yes: worse:07/28 Patient to be Ind w/ HEP Yes Custodial Goals Number of Weeks 6-8 Decreased Palpation Tenderness Yes: grade 1 +TTP dorsal aspect LLE foot Increase Strength Yes: 4/5 LLE hip/knee MMT scores grossly Increase Endurance Yes Improve Transfers Yes: Pt. will sit<>stand IND. w/ AD from plinthe Increase Ability to Walk Yes: w/ AD Increase Ability to Stand Yes: w/ AD Improve LEFI Score Yes Decrease Subjective C/O Pain Yes: worse:-05/28 dorsal aspect of foot Patient to be Ind w/ Advanced HEP Yes Outpatient Therapy Plan of Care Treatment Plan May Include Therapeutic Exercise Including Home Yes Exercise Program Manual Therapy Techniques Yes Neuromuscular Re-education Yes Therapeutic Activities to Return to Yes Previous Functional/Work Level Gait Training Yes ADL/Self Care Education Yes Thermal Modalities Yes Electrical Stimulation Yes Ultrasound/Phonophoresis Yes Iontophoresis Yes Vasopneumatic Compression Pump Yes Massage Yes Eval/Re-Eval Yes Frequency Times per week 2 Duration Number of Weeks 6-8 Addendums This patient is a candidate for social No or vocational rehab? Patient/Guardian verbally acknowledges Yes understanding of treatment program and consents to further treatment? Patient/Guardian verbally acknowledges Yes understanding of diagnosis, prognosis and goals for treatment? Eval Complexity PT Charges 20547 - Moderate Complexity Shoulder/Elbow Eval Shoulder Objective Measurements Elbow Objective Measurements PHYSICIAN CERTIFICATION: I certify the specified therapy services for Valentín Tony are required, authorized, and reviewed every 30 days.
== END 2024-08-15 23:59 | disposition home or self-care (01) ==
LOC: PT 15:00
PROVIDERS: PCP Family Medicine; Visit Provider Family Medicine
DX: M21.372 Foot drop, left foot (principal); I63.9 Cerebral infarction, unspecified
CPT/HCPCS: 97110; 97163; 97530

== ENCOUNTER 2024-09-17 15:00 | Outpatient (RCR) | payer MEDICARE, MEDICAID, SELFPAY | END 2024-09-17 23:59 | disposition home or self-care (01) | LOC: PT.CARL 15:00 | PROVIDERS: PCP Family Medicine; Visit Provider Family Medicine | DX: M21.372 Foot drop, left foot (principal); I63.9 Cerebral infarction, unspecified | CPT/HCPCS: 97110; 97530 ==

== ENCOUNTER 2024-09-24 14:58 | Outpatient (RCR) | payer MEDICARE, MEDICAID, SELFPAY | END 2024-10-10 13:04 | disposition home or self-care (01) | LOC: PT.CARL 14:58 | PROVIDERS: PCP Family Medicine; Visit Provider Family Medicine | DX: M21.372 Foot drop, left foot (principal); I63.9 Cerebral infarction, unspecified | CPT/HCPCS: 97110; 97530 ==

== ENCOUNTER 2025-02-08 08:41 | Outpatient (CLI) | payer MEDICARE, MEDICAID, SELFPAY ==
--- OUTSIDE RECORDS SUMMARY | 2025-02-08 08:43 | XMS_ITS | Clinical Summary ---
Author Organization [employer] ([place], [place], [place], [place], [place]) Address [address] [place] [address] Care Team Providers Care Hr Coordinator Name Role Phone Elias Washington MD Primary Care Provider [phone] Elias Washington MD Unavailable [phone] Social History Tobacco Use Types Packs/Day Years Used Date Smoking Tobacco: Never Assessed Sex and Gender Information Value Date Recorded Sex Assigned at Not on file Legal Sex Male 5:31 PM CDT Gender Identity Not on file Sexual Orientation Not on file Plan of Treatment Health Maintenance Due Date Last Done Comments CT Colonography 1957 Colonoscopy 1957 Colorectal Cancer Screening 1957 FOBT/FIT 1957 Fit-DNA (Cologuard) 1957 Sigmoidoscopy 1957 Depression Screening (12+) 1969 Tobacco Cessation Counseling and Screening (12+) 1969 DTAP/TDAP/TD VACCINES (1 - Tdap) 1976 Shingles Vaccine (Zoster) (1 of 2) 08/01/2007 Pneumococcal 50+ years (2 of 2 - PCV) 11/10/2018, 03/28/2014 Falls Risk Screening 03/21/2024 COVID-19 VACCINE ( season) 11/19/202403/2020, 05/22/2020 Influenza Vaccine (#1) 2024 01/31/2018, 2014 Respiratory Syncytial Virus (RSV) Adult or (1 - 1-dose 75+ series) 2032 Insurance [employer] MEDICARE PPO MEDICAID OF [place] Care Teams Hr Coordinator Relationship Specialty Start Date End Date Elias Washington MD [address] [place] [id number] PCP - General Family Medicine 07/07/22 Elias Washington MD [address] [place] [id number] Referring Physician Family Medicine 07/07/22
--- OUTSIDE RECORDS SUMMARY | 2025-02-08 08:43 | XMS_ITS | Data Portability ---
Author Organization NESS - SHANDRA Nicholas BEJOU CLOSED Address [address] [facility] [address] [place] [address] Assessment Encounter Date Assessment Date Assessment LastModified by Organization Details LastModified Time 11/17/2017 11/17/2017 Stent has been removed. We discussed kidney stone prevention. [email or web address] Not available 11/27/2017 22:13:44 Plan of Treatment Reminders Order Date Submit Date Provider Last Modified By Organization Details Last Modified Time Details Appointments None recorde d. Lab urinaly sis, dipstic k, auto 018 11/18/19 18 [email or web address] [id number] [facility], [address] [facility], [address], [place], [address], 8 12:06:37 culture , urine 018 11/18/19 18 [facility], [facility], [place], [address], 8 15:54:00 Referral None recorde d. Procedures None recorde d. Surgeries None recorde d. Imaging None recorde d. Medication Orders None recorde d. Patient TargetsNo targets recorded. Patient Instructions Encounter Date Encounter Id Patient Instructions Last Modified By Organization Details Last Modified Time 11/17/2017 [id number] healthy together Not availa ble 11/18/2017 12:06:37 learning about high blood pressure [email or web address] Not available 11/18/2017 12:06:37 Male Urinary Tract Infection (UTI): Care Instructions Not available 11/18/2017 12:06:37 kidney stone: care instructions [email or web address] Not available 11/27/2017 22:13:44 learning about diet for kidney stone prevention [email or web address] Not available 11/27/2017 22:13:45 Reason for Referral None Reported. Results Created Date Observation Date Name Description Value Unit Range Abnormal Flag Note LastModifiedBy Organization Detail LastModifiedTime 11/18/19 18 11/17/2017 urina lysis , dipst ick, auto Unknown Analyte Yellow Not Available [facility] With [address], [place], [address], 11/17/2017 16:01:12 11/18/19 18 11/17/2017 urina lysis , dipst ick, auto Unknown Analyte Clear Not Available [facility] With [address], [place], [address], 11/17/2017 16:01:12 11/18/19 18 11/17/2017 urina lysis , dipst ick, auto Unknown Analyte 1.010 Not Available [facility] With [address], [place], [address], 11/17/2017 16:01:12 11/18/19 18 11/17/2017 urina lysis , dipst ick, auto Unknown Analyte 1.003 - 1.035 Not Available [address], [place], [address], 11/17/2017 16:01:12 11/18/19 18 11/17/2017 urina lysis , dipst ick, auto Unknown Analyte 6.5 Not Available [address] [place], [place], [address], 11/17/2017 16:01:12 11/18/19 18 11/17/2017 urina lysis , dipst ick, auto Unknown Analyte 5.0 - 8.0 Not Available [address], [place], [address], 11/17/2017 16:01:12 11/18/19 18 11/17/2017 urina lysis , dipst ick, auto Unknown Analyte 75 Sheri/ul (+) Not Available [facility] With [address], [place], [address], 11/17/2017 16:01:12 11/18/19 18 11/17/2017 urina lysis , dipst ick, auto Unknown Analyte Negati ve Not Available [facility] With [address], [place], [address], 11/17/2017 16:01:12 11/18/19 18 11/17/2017 urina lysis , dipst ick, auto Unknown Analyte Negati ve Not Available [facility] With [address], [place], [address], 11/17/2017 16:01:12 11/18/19 18 11/17/2017 urina lysis , dipst ick, auto Unknown Analyte Negati ve Not Available [facility] With [address], [place], [address], 11/17/2017 16:01:12 11/18/19 18 11/17/2017 urina lysis , dipst ick, auto Unknown Analyte Trace Not Available [facility] With [address], [place], [address], 11/17/2017 16:01:12 11/18/19 18 11/17/2017 urina lysis , dipst ick, auto Unknown Analyte Negati ve - Trace Not Available [facility] With [address], [place], [address], 11/17/2017 16:01:12 11/18/19 18 11/17/2017 urina lysis , dipst ick, auto Unknown Analyte Normal Not Available [facility] With [address], [place], [address], 11/17/2017 16:01:12 11/18/19 18 11/17/2017 urina lysis , dipst ick, auto Unknown Analyte Normal Not Available [facility] With [address], [place], [address], 11/17/2017 16:01:12 11/18/19 18 11/17/2017 urina lysis , dipst ick, auto Unknown Analyte Negati ve Not Available [facility] With [address], [place], [address], 11/17/2017 16:01:12 11/18/19 18 11/17/2017 urina lysis , dipst ick, auto Unknown Analyte Negati ve Not Available [facility] With [address], [place], [address], 11/17/2017 16:01:12 11/18/19 18 11/17/2017 urina lysis , dipst ick, auto Unknown Analyte Normal Not Available [facility] With [address], [place], [address], 11/17/2017 16:01:12 11/18/19 18 11/17/2017 urina lysis , dipst ick, auto Unknown Analyte Normal - 1mg/dl Not Available [facility] With [address], [place], [address], 11/17/2017 16:01:12 11/18/19 18 11/17/2017 urina lysis , dipst ick, auto Unknown Analyte Negati ve Not Available [facility] With [address], [place], [address], 11/17/2017 16:01:12 11/18/19 18 11/17/2017 urina lysis , dipst ick, auto Unknown Analyte Negati ve Not Available [facility] With [address], [place], [address], 11/17/2017 16:01:12 11/18/19 18 11/17/2017 urina lysis , dipst ick, auto Unknown Analyte 250 Gal/ul Not Available [facility] With [address], [place], [address], 11/17/2017 16:01:12 11/18/19 18 11/17/2017 urina lysis , dipst ick, auto Unknown Analyte Negati ve Not Available [facility] With [address], [place], [address], 11/17/2017 16:01:12 11/18/19 18 11/17/2017 urina lysis , dipst ick, auto Unknown Analyte Clean Catch Not Available [facility] With [address], [place], [address], 11/17/2017 16:01:12 11/18/19 18 11/17/2017 urina lysis , dipst ick, auto Unknown Analyte Automa mary ann Not Available [facility] With [address], [place], [address], 11/17/2017 16:01:12 11/18/19 18 11/17/2017 cultu re, urine results Sourc e: CCUR Colle cted: 11/17 16:03 Site: Recei kranthi : 11/17 20:32 URINE SCREE N(CUL TURE) FINAL 11/22 11:45 11/22 COLON Y COUNT : < 20,00 0 CFU/M L Three or more isola kaiden; mixed skin lloyd . Not Available [facility] [address] [place] [address], [address], 11/22/2017 11:45:33 11/10/19 18 11/06/2017 CT, abdom en + pelvi s, w/o contr ast No observ ation record ed. [email or web address] [facility] (Radiology) [address] , [place], [address], 11/09/2017 15:49:19 Result Notes None recorded. Problems Name Problem SNOMED Code Status Onset Date Resolution Date Notes Provider Name and Address Organization Details Recorded Time Renal pain 785724312 [facility] 11/17/2017 15:58:34 Problem Notes None recorded. Procedures Surgical History Date Name Laterality Status Provider Name and Address Organization Details Recorded Time 11/10/2017 [facility] 11/17/2017 15:59:12 Imaging Results None recorded. Procedure Notes None recorded. Medical Equipment None Reported. Allergies Allergen ID Allergen Name Allergen Category Reaction Reaction Severity Criticality Documentation Date Start Date Code Code System Note Provider Name and Address Organization Details Recorded Time 403720 Product containin g penicilli n (product) medicatio n Not available Not available Not available 11/17/2017 72188 8001 [facility]ED [facility] 15:51:56 Medications Name Sig Start Date [...] Body mass index (BMI) Body weight Systolic And Diastolic Provider Name and Address Organization Details Last Updated DateTime 11/17/2017 177.8 cm 30.7 kg/m2 18886.77 g 118/60 mm[Hg] Gretchen Martint [facility] 11/17/2017 15:51:18 Social History Question Answer Notes LastModified by Organizat ion Details LastModified Time Tobacco Smoking Status Former Smoker Gretchen Baer [facility] 11/17/2017 15:58:50 Marital Status Informatio n not available 11/17/2017 What Was The Date Of Your Most Recent Tobacco Screening? 11/17/2017 Information n ot available 05/08/2019 Sex: Unknown Functional Status Question Answer Note LastModified by Organization D etails LastModified Time What is your level of alcohol consumption? None Information not available 11/17/2017 Mental Status None recorded. Family History Relationship [...] Diagnosis SNOMED-CT Code Diagnosis ICD10 Code Diagnosis IMO Codes Diagnosis Note [id number] [facility] [place] [address] 06/21/2016 19:03:09 06/21/2016 19:03:09 [id number] WILLIAM KITCHEN MD [facility] [address] [facility] [place] [address] 11/17/2017 14:39:16 11/28/2017 08:26:07 Urinary tract infectious disease 55479680 N39.0 Kidney stone 15226962 N2 0.0 Health Concerns Section Related Observation LastModified by Organization Detai ls LastModified Time None Recorded Concern Status LastModified by Organization Details LastModified Time None Recorded Advance Directives Directive None Recorded Payers Insurance Date Sequence Insurance Name Policy Number Policy [place] Covered Member ID [place] Member ID Guarantor Name 11/23/2017 1 [employer] (MEDICARE REPLACEMENT/ ADVANTAGE - PPO) Valentín Jimenez [id number] Valentín Jimenez 02/13/2020 2 MEDICAID-[facility] CHOICES - FFS/TRADITIO NAL Valentín Jimenez [id number] Valentín Jimenez Notes Date Note Type Note Provider Name and Address Organization Details Recorded Time 11/17/2017 text/html 62-year-old male in the office for initial office evaluation of urolithiasis. He was admitted to [facility] with right renal colic secondary to ureteral stone. He underwent ureteroscopic stone extraction and stent placement. He is feeling much better now. No current flank pain, hematuria. WILLIAM KITCHEN MD [address] [place], [address], [facility] 11/27/2017 22:14:24
--- OUTSIDE RECORDS SUMMARY | 2025-02-08 08:43 | XMS_ITS | Clinical Summary ---
Author Organization Healthcare Address [address] [place] [address] Care Team Providers Care Watch Assembly Inspector Name Role Phone José Miguel Skelton MD Primary Care Provider [phone] Immunizations Immunization Administration Dates Next Due Influenza, seasonal, injectable, preservative fr ee 03/28/2014 Pneumococcal Polysaccharide PPV23 03/28/2014 Family History Medical History Relation Name Comments Heart attack Mother Conversions - Other Other Family h istory unknown Relation Name Status Comments Mother Other Social History Tobacco Use Types Packs/Day Years Used Date Smoking Tobacco: Former Alcohol Use Standard Drinks/Week Comments No 0 (1 standard drink = 0.6 oz pur e alcohol) Sex and Gender Information Value Date Recorded Sex Assigned at Not on file Legal Sex Male 6:49 PM EDT Gender Identity Not on file Sexual Orientation Not on file Last Filed Vital Signs Vital Sign Reading Time Taken Comments Blood Pressure 145/82 07/06/2018 10:48 AM EDT Pulse 62 07/06/2018 10:48 AM EDT Temperature 36.3 C (97.4 F) 07/06/2018 10:48 AM EDT Respiratory Rate 16 07/06/2018 10:4 8 AM EDT Oxygen Saturation - - Inhaled Oxygen Concentration - - Weight 96.2 kg (211 lb 15.9 oz) 019 10:48 AM EDT Height 177.8 cm (5' 10 ) 03/29/2018 11: 32 AM EST Body Mass Index 30.42 03/29/2018 11:32 AM EST Plan of Treatment Not on file Care Teams Watch Assembly Inspector Relationship Specialty Start Date End Date José Miguel Skelton MD [address] [facility] [address] [place] [address] PCP - General 08/01/20
--- OUTSIDE RECORDS SUMMARY | 2025-02-08 08:43 | XMS_ITS | Referral Summary ---
Author Organization [employer] ([place], [place], [place], [place], [place]) Address [address] [place] [address] Care Team Providers Care Grain Loader Name Role Phone Elias Washington MD Primary Care Provider [phone] Elias Washington MD Unavailable [phone] Social History Tobacco Use Types Packs/Day Years Used Date Smoking Tobacco: Never Assessed Sex and Gender Information Value Date Recorded Sex Assigned at Not on file Legal Sex Male 5:31 PM CDT Gender Identity Not on file Sexual Orientation Not on file Plan of Treatment Not on file Insurance [employer] MEDICARE PPO MEDICAID OF [place] Care Teams Grain Loader Relationship Specialty Start Date End Date Elias Washington MD [address] [facility] [address] [place] [address] PCP - General Family Medicine 07/07/22 Elias Washington MD [address] [facility] [address] [place] [address] Referring Physician Family Medicine 07/07/22
--- OUTSIDE RECORDS SUMMARY | 2025-02-08 08:43 | XMS_ITS ---
Author Organization [facility] Care Team Providers Care Division Human Resources Manager Name Role Phone Rosalva Alfaro Unavailable Unavailable Mary Jane Santos Allergies and adverse reactions Code CodeSystem Substance Reaction Severity StartDate Concern Status 7984 RXNORM Penicillin Moderate 06/01/2021 active Care Team Name Role Address Phone Organization Dates Rosalva Alfaro PCP [address] [place] [address], [place] (Office): [facility] 01/16/2023 - 02/09/2023 Mary Jane Santos [address] [place] [address], [facility], [facility] (Office): : [facility] 01/16/2023 - 02/09/2023 Immunizations Immunization Status Vaccine Details Vaccine Code CodeSystem Date Notes TB 2 Step Mantoux Skin Test completed tuberculin skin test; unspecified formulation lotNumber: [id number] expiry: 11/20/2023 Mfg: Tubersol Given 0.1 ml Right Forearm intradermally Step 2 of Multi-step with next step required 98 CVX created date: 01/24/2023 consent date: 01/24/2023 administer ed date: 01/24/2023 Educated by Parminder Santos LPN on 01/24/2023 TB 2 Step Mantoux Skin Test completed tuberculin skin test; unspecified formulation lotNumber: [id number] expiry: 12/19/2023 Given 0.1 ml Right Forearm intradermally Step 1 of Multi-step with next step required 98 CVX created date: 01/17/2023 consent date: 01/16/2023 administer ed date: 01/17/2023 TB 2 Step Mantoux Skin Test completed tuberculin skin test; unspecified formulation lotNumber: [id number] expiry: 02/10/2022 Mfg: PAR Given 0.1 ml Right Forearm subcutaneously Step 1 of Multi-step 98 CVX created date: 06/10/2021 consent date: 06/10/2021 administer ed date: 06/09/2021 TB 2 Step Mantoux Skin Test completed tuberculin skin test; unspecified formulation lotNumber: [id number] expiry: 02/10/2022 Mfg: Tuberculin PPD Given 0.1 ml Right Forearm intradermally Step 1 of Multi-step with next step required 98 CVX created date: 06/02/2021 consent date: 06/01/2021 administer ed date: 06/01/2021 Pneumococcal PCV13 completed pneumococcal conjugate vaccine, 13 valent 133 CVX created date: 06/02/2021 consent date: 06/02/2021 administer ed date: 04/07/2014 Pneumococcal PPSV23 completed pneumococcal polysaccharide vaccine, 23 valent 33 CVX created date: 06/02/2021 administer ed date: 11/10/2020 SARS-COV-2 (COVID-19) completed SARS-COV-2 (COVID-19) vaccine, mRNA, spike protein, LNP, preservative free, 100 mcg/0.5mL dose or 50 mcg/0.25mL dose Step 1 of Multi-step with next step required 207 CVX created date: 06/02/2021 administer ed date: 06/19/2020 SARS-COV-2 (COVID-19) completed SARS-COV-2 (COVID-19) vaccine, mRNA, spike protein, LNP, preservative free, 30 mcg/0.3mL dose, iker-sucrose formulation Step 2 of Multi-step with next step required 217 CVX created date: 06/02/2021 administer ed date: 05/22/2020 SARS-COV-2 (COVID-19) completed SARS-COV-2 (COVID-19) vaccine, mRNA, spike protein, LNP, preservative free, 100 mcg/0.5mL dose or 50 mcg/0.25mL dose Step 1 of Multi-step with next step required 207 CVX created date: 06/02/2021 administer ed date: 05/22/2020 Mental Status Section Date Assessment Total Score Description 02/09/2023 BIMS 12 moderate cognit zac impairment CAM 0 No delirium ind icated PHQ-9 11 moderate depres rajesh 01/22/2023 BIMS 12 moderate cognit zac impairment CAM 0 No delirium ind icated PHQ-9 11 moderate depres rajesh Insurance Providers Problems Problem # Description Date of onset Resolved Date Code CodeSystem Concern Status 1 ANEMIA, UNSPECIFIED 01/28/[address] active 2 OTHER LACK OF COORDINATION 01/17/[address] active 3 OTHER SEQUELAE OF OTHER CEREBROVASCULAR DISEASE 01/17/[address] active 4 DEPRESSION, UNSPECIFIED 01/16/[address] active 5 OTHER CHRONIC PAIN 01/16/[address] active 6 ADJUSTMENT DISORDER WITH DEPRESSED MOOD 06/07/[address] active 7 CEREBRAL INFARCTION, UNSPECIFIED 06/01/[address] active 8 CHRONIC OBSTRUCTIVE PULMONARY DISEASE, UNSPECIFIED 06/01/[address] active 9 COGNITIVE COMMUNICATION DEFICIT 06/01/[address] active 10 DIFFICULTY IN WALKING, NOT ELSEWHERE CLASSIFIED 06/01/[address] active 11 ESSENTIAL (PRIMARY) HYPERTENSION 06/01/[address] active 12 GASTRO-ESOPHAGEAL REFLUX DISEASE WITHOUT ESOPHAGITIS 06/01/[address] active 13 HEMIPLEGIA, UNSPECIFIED AFFECTING LEFT NONDOMINANT SIDE 06/01/[address] active 14 HYPERLIPIDEMIA, UNSPECIFIED 06/01/[address] active 15 INSOMNIA, UNSPECIFIED 06/01/[address] active 16 MAJOR DEPRESSIVE DISORDER, SINGLE EPISODE, UNSPECIFIED 06/01/[address] active 17 OTHER MUSCLE SPASM 06/01/[address] active 18 POLYNEUROPATHY, UNSPECIFIED 06/01/[address] active 19 RESPIRATORY DISORDERS IN DISEASES CLASSIFIED ELSEWHERE 06/01/[address] active 20 UNSTEADINESS ON FEET 06/01/[address] active 21 WEAKNESS 06/01/[address] active Reason for Referral No Reasons for Referral Entered Social History Social History Observation Description Start Date End Date Code Code System Current Smoking Status Tobacco smoking consumption unknown 769031647 SNOMED CT Sex Assigned At Male 1955 55400-2 [facility] Gender Identity Sexual Orientation Vital Signs Code Code System Vitals Name Values and Units Timing Information 46968-3 [facility] Pain Level Value=0.0 02/09/2023 9279-1 [facility] Respiratory Rate Value=20.0 Units=/m in 02/09/2023 8867-4 [facility] Heart rate Value=78.0 Units=/min 8462-4 [facility] Blood Pressure-Diastolic Value=74 Un its=mmHg 02/05/2023 8480-6 [facility] Blood Pressure-Systolic Gloir=291 Un its=mmHg 02/05/2023 8310-5 [facility] Body Temperature Value=98.0 Units= F 02/05/2023 31578-1 [facility] O2 % BldC Oximetry Value=98.0 Units= % 02/05/2023 02164-0 [facility] Weight Skpwy=456.8 Units=Lbs 11/2022 2339-0 [facility] Blood Sugar Fnfdn=492.0 Units=mg/dL 06/07/2021 8302-2 [facility] Height Value=70.0 Units=Inches 06/02/2021
[2025-02-08 09:04] LABS: Hematocrit 46.7 % (42.0-52.0); Hemoglobin 15.0 g/dL (14.1-18.0); Immature Granulocytes % 0.2 %; Mean Corpuscular HGB Conc 32.1 g/dL (31.8-35.4); Mean Corpuscular Hemoglobin 26.8 pg (27.0-31.2); Mean Corpuscular Volume 83.5 fl (80-94); Nucleated Red Blood Cells % 0 %; Platelet Count 315 K/mm3 (142-424); Red Blood Count 5.59 M/mm3 (4.60-6.20); Red Cell Distribution Width-SD 46.2 fL; White Blood Count 8.6 K/mm3 (4.8-10.8)
[2025-02-08 09:30] LABS: Alanine Aminotransferase 23 U/L (12-78); Albumin Level 4.2 g/dl (3.5-5.0); Albumin/Globulin Ratio 1.6 (1.1-1.8); Alkaline Phosphatase 101 U/L (38-126); Anion Gap 10.8 mEq/L (5-15); Aspartate Amino Transferase 25 U/L (17-59); Bilirubin,Total 0.5 mg/dl (0.2-1.3); Blood Urea Nitrogen 17 mg/dl (9-20); Calcium 9.4 mg/dl (8.4-10.2); Carbon Dioxide 25 mmol/L (22.0-30.0); Chloride 105 mmol/L (98-107); Cholesterol 193 mg/dl (140-200); Creatinine,Serum 1.00 mg/dl (0.66-1.25); Estimated Glomerular Filt Rate 75 ml/min (>60); GFR (African American) 90 ML/MIN (>60); Globulin 2.7 g/dL (1.3-3.2); Glucose 97 mg/dl (74-100); HDL Cholesterol 36 mg/dl (40-60); Potassium 4.8 mmoL/L (3.5-5.1); Sodium 136 mmol/L (136-145); Total Protein,Serum 6.9 g/dl (6.3-8.2); Triglycerides 144 mg/dl (30-150)
== END 2025-02-08 23:59 | disposition home or self-care (01) ==
LOC: LAB.DROPOF 08:42
PROVIDERS: PCP Family Medicine; Visit Provider Family Medicine
DX: J44.9 Chronic obstructive pulmonary disease, unspecified (principal); I63.9 Cerebral infarction, unspecified; I10 Essential (primary) hypertension
CPT/HCPCS: 36415; 80053; 80061; 85025

== ENCOUNTER 2025-03-18 14:59 | Outpatient (RCR) | payer MEDICARE, MEDICAID, SELFPAY ==
--- NOTE | 2025-03-18 16:52 | HMH.PTOPEV ---
PT Evaluation Rehab PT Outpatient Evaluation Start: 03/18/25 15:08 Freq: Status: Active Protocol: Document 03/18/25 15:08 [email or web address] (Rec: 03/18/25 16:52 [email or web address] [id number]) E-signed By Sukhjinder Ramos, PT Outpatient Therapy Subjective History Subjective History Pt. 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 Pt. reports he has been living a more sedentary lifestyle over the past few months, states he hasn't been walking at home, and has been needing more assistance from his w/ daily activities. Pt. reports he requires assistance from his to transition out of his W/C at home now, states, I am okay once I get my feet underneath of me. Pt. reports he has not ambulated at home anymore secondary to fear of falling and LOB. Pt. reports with the assistance of his he is able to do some, but states having the experience of the Physical Therapist he is able to do more. Pt. reports previous making improvements in muscle strength and ADL function at home w/ previous Outpatient Physical Therapy treatment. Pt. reports he continues his exercises at home after discharge from PT , but has quit all in all after a few weeks. Pt. reports noticing the decline in function secondary to the decline in physical activity. Pt. reports his goals w/ Physical Therapy is to be able to ambulate further distances, and to IND. stand up out of his W/C at home all w/ SPV. Current medications include Propranolol, Baclofen, Celexa, Percocet, Neurontin, Xarelto. PMH includes CVA, nephrolith, COPD, pneumonia, foot drop of the LLE foot, spasticity of LLE. New diagnosis of No cancer in past 12 months? Chief Complaint Pain,Spasms,Stiff,Gives out/Unstable,Paresthesia, Weakness,Decreased Coordination Symptom Type Ache,Sharp,Stabbing,Burning,Numbness,Tingling,Shooting Symptoms Relieved By Rest/Positioning,Brace/Support Symptoms Aggravated Standing,Physical Activity,Walking By Prior Functional None Limitations Current Functional Housework,Dressing,Standing,Recreation Activity,Walking Limitations Symptom Description Activity Dependent Level of pain today 0 (0-10) Pain scale - at its 0 best (0-10) Pain scale - at its 9 worst (0-10) Hip/Knee Eval Gait Observation General Gait Pattern Antalgic Gait,Shuffling Step,Decrease Weight Bear (L), Observation Decrease Stride Lngth (R) Assistive Device Assistive Devices Straight Cane Palpation Tenderness left Knee Palpation Tenderness Finding Knee Palpation grade 4 +TTP quad/patellar tendon Overall Comment Hip Palpation Tenderness Findings Hip Palpation grade 4 +TTP rectus femoris and quadriceps mms. Overall Comment MMT Hip Flexion Strength 3+ Fair+ Grade Hip Abduction 2+ Poor+ Strength Grade Hip Adduction 3 Fair Strength Grade Hip Extension 3+ Fair+ Strength Grade Gluteus Anil 3+ Fair+ Strength Grade Knee Extension 3+ Fair+ Strength Grade Knee Flexion 2+ Poor+ Strength Grade Knee Extensors Rigidity Muscle Tone Description Knee Flexors Muscle Rigidity Tone Description Hip Extensors Muscle Rigidity Tone Description Hip Flexors Muscle Rigidity Tone Description DTR bilateral Rt Patellar 0 Lt Patellar 0 Rt Ankle 0 Lt Ankle 0 Sensation left LE Dermatome Level L2,L3,L4,L5,S1,S2 Comment pt. vocalized absent light touch sensation in patterns compared to R LE Lower Extremity Functional Index Activities Today, do you or would you have any difficulty at all with: a.Any of your usual Extreme difficulty or unable to perform activity work, housework or school activities b. Your usual Extreme difficulty or unable to perform activity hobbies, recreational or sporting activities c. Getting into or Extreme difficulty or unable to perform activity out of the bath d. Walking between Extreme difficulty or unable to perform activity rooms e. Putting on your Extreme difficulty or unable to perform activity shoes or socks f. Squatting Quite a bit of difficulty g. Lifting an object Extreme difficulty or unable to perform activity , like a bag of groceries from the floor h. Performing light Extreme difficulty or unable to perform activity activities around your home i. Performing heavy Extreme difficulty or unable to perform activity activities around your home j. Getting into or Quite a bit of difficulty out of a car k. Walking 2 blocks Extreme difficulty or unable to perform activity l. Walking a mile Extreme difficulty or unable to perform activity m. Going up or down Extreme difficulty or unable to perform activity 10 stairs (about 1 flight of stairs) n. Standing for 1 Extreme difficulty or unable to perform activity hour o. Sitting for 1 A little bit of difficulty hour p. Running on even Extreme difficulty or unable to perform activity ground q. Running on uneven Extreme difficulty or unable to perform activity ground r. Making sharp Extreme difficulty or unable to perform activity turns while running fast s. Hopping Extreme difficulty or unable to perform activity t. Rolling over in Extreme difficulty or unable to perform activity bed LEFI Score Lower Extremity 5 Functional Index Score Outpatient Therapy Assessment Impairments Problems/ Palpation Tenderness,Impaired Range of Motion,Impaired Impairmments Strength,Impaired Endurance,Impaired Transfers,Impaired Gait Pattern,Impaired Walking,Impaired Standing, Impaired Dressing,Impaired Shower/Bathing,Impaired Household Care,Subjective C/O Pain,Impaired Self Care/ Self Management Prognosis Rehab Potential Good Comment w/ HEP compliancy and prior Outpatient Physical Therapy success Clinical Impression Consistent with Yes Diagnosis Consistent with L-sided hemiplegia and hemiparesis Additional details: 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 will demonstrate compliancy w/ initial HEP Patient Goals in 4 wks. for improved prognosis w/ Physical Therapy. STG#2.) Pt. will exhibit sit to stand from W/C w/ quad cane min A in 4 wks. for improved QOL. STG#3.) Pt. will demonstrate 10ft. ambulation using quad cane and min A in 4 wks. for improved QOL. PT [employer] Patient LTG#1.) Pt. will exhibit compliancy w/ advanced HEP in Goals 6-8 wks. for optimal prognosis w/ Physical Therapy. LTG#2.) Pt. will demonstrate 4+/5 in L LE hip ext. MMT score in 6-8 wks. to return to sit to stand from W/C w/ quad cane SPV. for improved home ADL function. LTG#3.) Pt. will demonstrate 4+/5 in L LE knee ext. MMT score in 6-8 wks. to return to ambulating 30ft. on even surface w/ quad cane for improved home ADL function. LTG#4.) Pt. will self score a 6 point improvement in the LEFI scale in 6-8 wks. indicating a subjective improvement in function w/ Physical Therapy. Outpatient Therapy Plan of Care Treatment Plan May Include Therapeutic Exercise Yes Including Home Exercise Program Manual Therapy Yes Techniques Neuromuscular Re- Yes education Therapeutic Yes Activities to Return to Previous Functional/Work Level Gait Training Yes ADL/Self Care Yes Education Vasopneumatic Yes Compression Pump Massage Yes Eval/Re-Eval Yes Frequency Times per week 2 Duration Number of Weeks 6-8 Addendums This patient is a No candidate for social or vocational rehab ? Patient/Guardian Yes verbally acknowledges understanding of treatment program and consents to further treatment? Patient/Guardian Yes verbally acknowledges understanding of diagnosis, prognosis and goals for treatment? Eval Complexity PT Charges 10713 - Moderate Complexity Shoulder/Elbow Eval Shoulder Objective Measurements Elbow Objective Measurements PHYSICIAN CERTIFICATION: I certify the specified therapy services for Valentín Jimenez are required, authorized, and reviewed every 30 days.
== END 2025-03-18 23:59 | disposition home or self-care (01) ==
LOC: PT.CARL 14:59
PROVIDERS: PCP Family Medicine; Visit Provider Family Medicine
DX: I69.154 Hemiplegia and hemiparesis following nontraumatic intracerebral hemorrhage affecting left non-dominant side (principal)
CPT/HCPCS: 97162